=== PATIENT | male | born 1950 | race Caucasian/White ===

== ENCOUNTER 2019-02-14 08:04 | Day surgery (SDC) | payer MEDICARE, BC ==
[2019-02-14] MEDS ORDERED: LIDOCAINE 2% MDV (20MG/ML) 20ML VIAL IV ONE (08:05)
[2019-02-14] MEDS ORDERED: PROPOFOL 10 MG/ML VIAL IV ONE (08:05)
--- NOTE | 2019-02-15 11:20 | Operative Note ---
OPERATION: COLONOSCOPY. PREOPERATIVE DIAGNOSIS: Personal history of colon polyps. POSTOPERATIVE DIAGNOSIS: Sigmoid diverticulosis, otherwise normal exam. PREPARATION QUALITY: Excellent. ESTIMATED BLOOD LOSS: None. SPECIMENS: None. COMPLICATIONS: None. PROCEDURE: After informed consent was obtained from the patient, he was placed in the left lateral decubitus position in the endoscopy suite, sedated and monitored by the department of anesthesia. Digital rectal exam was unremarkable. A well-lubricated GDF540 colonoscope was inserted into the rectum and advanced to the cecum. Preparation quality was excellent. The cecum, cecal bulb, ileocecal valve, ascending colon, transverse colon, descending colon, sigmoid colon, and rectum were free of inflammatory changes, mass lesions, or polyps. There were mild sigmoid diverticular changes observed. No inflammation was noted. The rectum was unremarkable in forward and in J-turn views. The endoscope was straightened, the rectal ampulla deflated, and the endoscope was removed. RECOMMENDATIONS: The patient should follow a high-fiber diet. I recommend a repeat exam in 5 years provided his health allows. As always, thank you for allowing me to participate in the healthcare of your patients. BEN
== END 2019-02-14 09:58 | disposition home or self-care (01) ==
LOC: HOP 08:04
PROVIDERS: ATTEND Internal Medicine Gastroenterology
DX: Z12.11 Encounter for screening for malignant neoplasm of colon (principal); Z86.010 Personal history of colon polyps; K57.30 Diverticulosis of large intestine without perforation or abscess without bleeding; I48.91 Unspecified atrial fibrillation; I10 Essential (primary) hypertension; E78.00 Pure hypercholesterolemia, unspecified; I50.9 Heart failure, unspecified
CPT/HCPCS: 00812; G0105